=== PATIENT | male | born 1980 | race American Indian/Alaskan Native ===

== ENCOUNTER 2017-03-07 10:15 | Emergency (ER) | payer MEDICAID, MEDICARE ==
[2017-03-07 10:54] LABS: Basophils % (Auto) 1.1 % (0.0-1.8); Hematocrit 43.5 % (35.5-45.6); Hemoglobin 14.2 gm/dl (11.8-15.2); Mean Corpuscular HGB Conc 33 % (32-34); Mean Corpuscular Hemoglobin 29 pg (28-32); Mean Corpuscular Volume 88 fl (84-94); Platelet Count 260 K/mm3 (140-440); Red Blood Count 4.96 M/mm3 (3.65-5.03); Red Cell Distribution Width 13.8 % (13.2-15.2); White Blood Count 6.2 K/mm3 (4.5-11.0)
[2017-03-07 11:59] LABS: Anion Gap 17 mmol/L; BUN/Creatinine Ratio 16.15; Blood Urea Nitrogen 21 mg/dL (9-20); Calcium 9.1 mg/dL (8.4-10.2); Carbon Dioxide 25 mmol/L (22-30); Chloride 99.4 mmol/L (98-107); Glucose 405 mg/dL (75-100); Potassium 4.8 mmol/L (3.6-5.0); Sodium 137 mmol/L (137-145)
[2017-03-07] MEDS ORDERED: APRESOLINE IV ONE ×2 (15:55→17:14)
[2017-03-07 17:26] VITALS: BP 181/123
[2017-03-07] MEDS ORDERED: NORCO 5/325 PO ONE (17:27)
--- NOTE | 2017-03-07 17:50 | Emergency Department Report ---
HPI - General Chief Complaint: High BP Time Seen by Provider: 03/07/17 15:55 - HPI HPI: This is a 36 year-old male presents emergency department complaint of some lower back pain since yesterday and he feels like he pulled something. He denies any problems with bowel or bladder, numbness or paresthesias or any neurological deficits. The patient was found to have very elevated blood pressure as well as very elevated blood sugar. The patient says that he does have history of hypertension and [id number] diabetes but he's been out of these medications for the past 6 months as they moved from [place] to [place] and are currently homeless staying in shelters. For this reason he does not have a primary care doctor although he does say that he has insurance. He is a tobacco smoker but denies any illicit drug use. He denies any chest pain, fever, nausea, vomiting. ED Past Medical Hx - Past Medical History Previous Medical History?: Yes Hx Hypertension: Yes Hx Diabetes: Yes Additional medical history: cellutlitis - Surgical History Past Surgical History?: Yes - Social History Smoking Status: Current Every Day Smoker Substance Use Type: None - Medications Home Medications: Home Medications Medication Instructions Recorded Confirmed Last Taken Type amLODIPine [Norvasc] 10 mg PO DAILY #30 tab 03/07/17 Unknown Rx metFORMIN [Glucophage] 500 mg PO BID #60 tablet 03/07/17 Unknown Rx ED Review of Systems ROS: Stated complaint: LOWER BACK PAIN Other details as noted in HPI Comment: All other systems reviewed and negative Constitutional: denies: chills, fever Eyes: denies: eye pain, eye discharge, vision change ENT: denies: ear pain, throat pain Respiratory: denies: cough, shortness of breath, wheezing Cardiovascular: denies: chest pain, palpitations Gastrointestinal: denies: abdominal pain, nausea, diarrhea Genitourinary: denies: urgency, dysuria Musculoskeletal: back pain. denies: arthralgia Skin: denies: rash, lesions Neurological: denies: headache, weakness, paresthesias Physical Exam - Physical Exam Vital Signs: Vital Signs 03/07/17 03/07/17 03/07/17 10:28 15:33 17:10 Temperature 97.7 F Pulse Rate 86 78 84 Respiratory 18 16 Rate Blood Pressure 202/144 Blood Pressure 193/127 189/113 [Left] O2 Sat by Pulse 100 97 Oximetry 03/07/17 17:26 Temperature Pulse Rate Respiratory Rate Blood Pressure 181/123 Blood Pressure [Left] O2 Sat by Pulse Oximetry Physical Exam: GENERAL: The patient is well-developed well-nourished. HENT: Normocephalic. Atraumatic. Patient has moist mucous membranes. EYES: Extraocular motions are intact. Pupils equal reactive to light bilaterally. NECK: Supple. Trachea is midline. CHEST/LUNGS: Clear to auscultation. There is no respiratory distress noted. HEART/CARDIOVASCULAR: Regular. There is no tachycardia. There is no gallop rub or murmur. ABDOMEN: Abdomen is soft, nontender. Patient has normal bowel sounds. There is no abdominal distention. SKIN: Skin is warm and dry. NEURO: The patient is awake, alert, and oriented. The patient is cooperative. The patient has no focal neurologic deficits. The patient has normal speech and gait. MUSCULOSKELETAL: There is no tenderness or deformity. There is no limitation range of motion. There is no evidence of acute injury. Muscle strength 55 upper and lower extremity bilaterally. BACK: No midline thoracic or lumbar tenderness to palpation or deformity. ED Course Vital Signs 03/07/17 03/07/17 03/07/17 10:28 15:33 17:10 Temperature 97.7 F Pulse Rate 86 78 84 Respiratory 18 16 Rate Blood Pressure 202/144 Blood Pressure 193/127 189/113 [Left] O2 Sat by Pulse 100 97 Oximetry 03/07/17 17:26 Temperature Pulse Rate Respiratory Rate Blood Pressure 181/123 Blood Pressure [Left] O2 Sat by Pulse Oximetry ED Medical Decision Making - Lab Data Result diagrams: 03/07/17 10:37 03/07/17 10:37 - Medical Decision Making 36-year-old male presents with some low back pain. He does not appear to have any problems with bowel or bladder, numbness or paresthesias or Any neurological deficits. He is low suspicion for any of the emergent condition such as cauda equina, epidural abscess or cord compression syndrome. He does appear to have very elevated blood pressure but has been noncompliant with his medications. He was given a dose of hydralazine. Patient also has elevated blood sugar but does not appear to be in diabetic ketoacidosis or HHNK. He was given some IV insulin. Upon recheck his blood pressure is still elevated but improved and his blood sugars still elevated but improved. He was going to get more medication but the patient and his significant other are homeless and needs to get to the alf before it closes. The patient signed out AMA however I did make sure that the patient had a prescription for amlodipine and a prescription for his metformin, which can both be filled for very cheap at [facility] and the patient has been encouraged to return as soon as possible. He was given primary care clinics in the area. We discussed dietary changes he could make but his resources are very limited. - Differential Diagnosis DKA, HHN K, muscle spasm, lumbar strain Critical Care Time: No Critical care attestation.: If time is entered above; I have spent that time in minutes in the direct care of this critically ill patient, excluding procedure time. 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 Return to the emergency department with any worsening of her symptoms or if you change your mind about treatment. Medications should be $4 for a one-month supply at [facility]. He might find a similar deal at [facility] and or [facility]. Prescriptions: amLODIPine [Norvasc] 10 mg PO DAILY #30 tab metFORMIN [Glucophage] 500 mg PO BID #60 tablet Referrals: PRIMARY CARE, [Primary Care Provider] - 3-5 Days [facility] [Outside] - 3-5 Days [facility] [Outside] - 3-5 Days [facility] [Outside] - 3-5 Days Time of Disposition: 17:51
== END 2017-03-07 18:00 | disposition left against medical advice (07) ==
LOC: ED 10:15
DX: E11.65 Type 2 diabetes mellitus with hyperglycemia (principal); M54.5 Low back pain; I10 Essential (primary) hypertension; Z91.14 Patient's other noncompliance with medication regimen; F17.200 Nicotine dependence, unspecified, uncomplicated
CPT/HCPCS: 36415; 80048; 82962; 84484; 85025; 93005; 93010; 96374; 96375; 96376; 99284; J0360; J1815

== ENCOUNTER 2017-06-13 19:48 | Emergency (ER) | payer MEDICAID ==
[2017-06-13 21:07] LABS: Basophils % (Auto) 0.8 % (0.0-1.8); Eosinophils % (Auto) 1.5 % (0.0-4.3); Hematocrit 40.4 % (35.5-45.6); Hemoglobin 13.3 gm/dl (11.8-15.2); Mean Corpuscular HGB Conc 33 % (32-34); Mean Corpuscular Hemoglobin 29 pg (28-32); Mean Corpuscular Volume 89 fl (84-94); Platelet Count 186 K/mm3 (140-440); Red Blood Count 4.57 M/mm3 (3.65-5.03); White Blood Count 5.1 K/mm3 (4.5-11.0)
--- NOTE | 2017-06-13 21:26 | XRay Report ---
FINAL REPORT EXAM: XR CHEST ROUTINE 2V HISTORY: CP TECHNIQUE: PA and lateral views of the chest PRIORS: None. FINDINGS: Lines, tubes, and devices: N/A Lungs and pleura: Trachea is normal in position. Mild linear markings in the lingula are present. Findings are suggesting atelectasis although early infiltrate is not excluded. There is no evidence for pleural effusion, vascular congestion, or pneumothorax. Cardiomediastinal silhouette: Cardiac and mediastinal silhouettes are unremarkable. Other: Bony structures are intact. IMPRESSION: Mild linear markings in the lingula. Findings are likely consistent with atelectasis.
[2017-06-13 21:32] LABS: Anion Gap 15 mmol/L; BUN/Creatinine Ratio 10; Blood Urea Nitrogen 13 mg/dL (9-20); Calcium 8.7 mg/dL (8.4-10.2); Carbon Dioxide 27 mmol/L (22-30); Glucose 229 mg/dL (75-100); Potassium 4.1 mmol/L (3.6-5.0); Sodium 138 mmol/L (137-145)
--- NOTE | 2017-06-13 21:44 | Emergency Department Report ---
ED General Adult HPI - General Chief complaint: High BP Stated complaint: URINATING BLOOD/HEADACHE Time Seen by Provider: 06/13/17 20:42 Source: patient Mode of arrival: Ambulatory Limitations: No Limitations - History of Present Illness Initial comments: Chief complaint is multiple history of present illness this is a patient who just moved here from [place] he's been out of his medicines he says he was on metoprolol and insulin he apparently is a diabetic with history of tobacco abuse who also has high blood pressure he is here stating multiple complaints including a headache elevated blood pressure and chronic diabetic ulcers to his bilateral lower extremities he says the headache was similar previous and was gradual in onset nosudden onset exertional headache. He also has been having some intermittent chest discomfort for 2 days he relates chest discomfort is tight but is constant for 2 days he's not short of breath with it. His fever he 's had a little blood in his urine he's here for further evaluation of elevated blood pressure intermittent chest pain intermittent headache and blood in the urine with chronic lower extremity ulcerations -: Gradual, unknown Location: head, chest Radiation: non-radiation Severity scale (0 -10): 2 Quality: burning Consistency: intermittent Associated Symptoms: chest pain, headaches. denies: diaphoresis, fever/chills, loss of appetite, malaise, nausea/vomiting, rash, seizure, shortness of breath, syncope - Related Data Previous Rx's Medication Instructions Recorded Last Taken Type amLODIPine [Norvasc] 10 mg PO DAILY #30 tab 03/07/17 Unknown Rx metFORMIN [Glucophage] 500 mg PO BID #60 tablet 03/07/17 Unknown Rx Allergies Allergy/AdvReac Type Severity Reaction Status Date / Time No Known Allergies Allergy Unverified 03/07/17 10:31 ED Review of Systems ROS: Stated complaint: URINATING BLOOD/HEADACHE Other details as noted in HPI Comment: All other systems reviewed and negative Constitutional: denies: diaphoresis Eyes: denies: eye discharge Respiratory: denies: shortness of breath, SOB with exertion, stridor Cardiovascular: as per HPI Gastrointestinal: denies: vomiting, diarrhea, constipation, hematemesis, melena , hematochezia Neurological: as per HPI, headache ED Past Medical Hx - Past Medical History Hx Hypertension: Yes Hx Diabetes: Yes Additional medical history: cellutlitis - Social History Smoking Status: Current Every Day Smoker Substance Use Type: None - Medications Home Medications: Home Medications Medication Instructions Recorded Confirmed Last Taken Type amLODIPine [Norvasc] 10 mg PO DAILY #30 tab 03/07/17 Unknown Rx metFORMIN [Glucophage] 500 mg PO BID #60 tablet 03/07/17 Unknown Rx ED Physical Exam - General Limitations: No Limitations General appearance: alert, in no apparent distress - Head Head exam: Present: atraumatic, normocephalic - Eye Eye exam: Present: normal appearance, PERRL, EOMI - Neck Neck exam: Absent: meningismus - Respiratory Respiratory exam: Present: normal lung sounds bilaterally. Absent: wheezes, rales, rhonchi, stridor, chest wall tenderness, accessory muscle use, decreased breath sounds, prolonged expiratory - Cardiovascular Cardiovascular Exam: Present: regular rate, normal rhythm, normal heart sounds - GI/Abdominal GI/Abdominal exam: Present: soft. Absent: distended, tenderness, guarding, rebound, mass, pulsatile mass - Back Exam Back exam: Present: normal inspection - Neurological Exam Neurological exam: Present: alert, altered, oriented X3, CN II-XII intact, normal gait. Absent: motor sensory deficit ED Course Vital Signs 06/13/17 06/13/17 06/13/17 19:51 20:42 20:45 Temperature 97.9 F Pulse Rate 106 H 96 H 98 H Respiratory 20 19 15 Rate Blood Pressure 218/144 167/103 Blood Pressure [Right] O2 Sat by Pulse 98 Oximetry 06/13/17 06/13/17 06/13/17 20:48 21:07 21:15 Temperature 98.4 F Pulse Rate 96 H 102 H 98 H Respiratory 18 15 23 Rate Blood Pressure 167/103 167/103 Blood Pressure 167/102 [Right] O2 Sat by Pulse 98 Oximetry 06/13/17 06/13/17 06/13/17 21:39 21:45 21:47 Temperature 98.2 F Pulse Rate 97 H 98 H 86 Respiratory 18 22 18 Rate Blood Pressure 181/135 203/138 Blood Pressure 203/138 [Right] O2 Sat by Pulse 100 Oximetry 06/13/17 06/13/17 06/13/17 22:01 22:02 22:15 Temperature Pulse Rate 97 H 89 95 H Respiratory 20 20 Rate Blood Pressure 167/103 208/138 203/138 Blood Pressure [Right] O2 Sat by Pulse Oximetry - Reevaluation(s) Reevaluation #1: 06/13/17 22:25 ED course patient's symptoms are improving appropriately blood pressure is improved chest pain is improved after says unremarkable chest x-ray and CT were unremarkable patient is stable for outpatient follow-up ED Medical Decision Making - Lab Data Result diagrams: 06/13/17 20:52 06/13/17 20:52 - EKG Data -: EKG Interpreted by Me EKG shows normal: sinus rhythm - EKG Data When compared to previous EKG there are: no significant change Interpretation: no acute changes, nonspecific ST-T wave sharonda - Radiology Data Radiology results: report reviewed, image reviewed Critical care attestation.: If time is entered above; I have spent that time in minutes in the direct care of this critically ill patient, excluding procedure time. ED Disposition Clinical Impression: Poorly controlled blood pressure, Poorly controlled diabetes mellitus, Headache , Atypical chest pain Disposition: DC-01 TO HOME OR SELFCARE Is pt being admited?: No Does the pt Need Aspirin: No Condition: Stable Instructions: Diabetes Mellitus Type 2 in Adults (ED), Chest Pain (ED) Referrals: CONSUELO ADAMES MD [Staff Physician] - 3-5 Days Time of Disposition: 22:27
[2017-06-13 21:48] LABS: Bacteria,Urine 1+ /HPF (Negative); Bilirubin,Urine NEG (Negative); Blood,Urine NEG (Negative); Ketones,Urine NEG (Negative); Leukocyte Esterase,Urine NEG (Negative); Mucus,Urine 2+ /HPF; Nitrite,Urine NEG (Negative); Urobilinogen,Urine < 2.0 mg/dL (<2.0)
[2017-06-13] MEDS ORDERED: NORMODYNE PO ONE (21:50)
[2017-06-13] MEDS ORDERED: NORMODYNE IV ONE (21:56)
[2017-06-13] MEDS ORDERED: NORCO 5/325 PO ONE (22:02)
[2017-06-13] MEDS ORDERED: REGLAN IV ONE (22:03)
--- NOTE | 2017-06-13 22:14 | Cat Scan Report ---
FINAL REPORT EXAM: CT HEAD/BRAIN WO CON HISTORY: headache with HTN crisis TECHNIQUE: Standard unenhanced CT of the head at 5.0 millimeter axial increments. PRIORS: None. FINDINGS: The ventricular system is normal in size and configuration. There is no evidence for parenchymal volume loss. There is no evidence for mass lesion, mass effect, midline shift, acute intracranial hemorrhage, or acute ischemia/ infarction. No evidence for acute skull fracture is seen. No abnormality in the overlying scalp soft tissues is seen. Visualized paranasal sinuses demonstrates several rounded densities in the left sphenoid and both maxillary sinuses inferiorly. Findings suggest retention cyst versus mucocele is or coastal thickening. There is also mucosal thickening in the right sphenoid sinus. IMPRESSION: 1. no acute intracranial process noted. 2. Chronic sinusitis with retention cyst or mucocele in the maxillary and left sphenoid sinuses.
[2017-06-13 22:31] VITALS: BP 177/114
== END 2017-06-13 22:50 | disposition home or self-care (01) ==
LOC: ED 19:48
DX: I10 Essential (primary) hypertension (principal); E11.9 Type 2 diabetes mellitus without complications; R07.89 Other chest pain; R51 Headache
CPT/HCPCS: 36415; 70450; 71020; 80048; 81001; 82962; 84484; 85025; 93005; 93010; 96374; 96375; 99285; J2765